=== PATIENT | male | born 1985 | race Caucasian/White ===

== ENCOUNTER 2020-06-27 12:30 | Emergency (ER) | payer MEDICAID ==
[~2020-06-27] VITALS: Ht 182.9 cm; Wt 83.8 kg
[2020-06-27 12:53] VITALS: BP 113/77
--- NOTE | 2020-06-27 15:32 | NUR ---
Patient/Caregiver given discharge instructions and they have confirmed that they understand the instructions. Patient ambulatory with steady gait.
== END 2020-06-27 15:26 ==
LOC: ED 15:25
DX: S63.522A Sprain of radiocarpal joint of left wrist, initial encounter (principal); X58.XXXA Exposure to other specified factors, initial encounter; Y93.89 Activity, other specified; Y92.89 Other specified places as the place of occurrence of the external cause; Y99.8 Other external cause status
CPT/HCPCS: 29125; 99283

== ENCOUNTER 2020-12-14 11:57 | Emergency (ER) | payer MEDICAID ==
[~2020-12-14] VITALS: Ht 182.9 cm; Wt 95.9 kg
[2020-12-14 12:02] VITALS: BP 132/62
== END 2020-12-14 12:52 | disposition home or self-care (01) ==
LOC: ED 12:45
DX: R04.0 Epistaxis (principal)
CPT/HCPCS: 99281

== ENCOUNTER 2021-02-27 20:46 | Emergency (ER) | payer MEDICAID ==
[~2021-02-27] VITALS: Ht 182.9 cm; Wt 97.3 kg
[2021-02-27 20:56] VITALS: BP 116/79
[2021-02-27] MEDS ORDERED: LIDOCAINE-MPF 1%, 5ML INFIL ONE (21:00)
[2021-02-27 23:31] LABS: BASOPHILS % (AUTO) 1 % (0-1); EOSINOPHILS % (AUTO) 2 % (1-7); LYMPHOCYTES % (AUTO) 36 % (22-44); MEAN CORPUSCULAR HEMOGLOBIN 28.2 pg (27.5-34.5); MEAN CORPUSCULAR HGB CONC 33.7 g/dL (33.2-36.2); MEAN PLATELET VOLUME 8.5 fL (7.4-10.4); MONOCYTES % (AUTO) 9 % (2-9); NEUTROPHILS % (AUTO) 53 % (42-75); PLATELET COUNT 193 x10^3/uL (130-400); RED BLOOD COUNT 5.04 x10^6/uL (4.38-5.82)
[2021-02-27 23:37] LABS: ALBUMIN 3.5 g/dL (3.4-5.0); ANION GAP 4 mmol/L (5-15); CALCIUM 9.2 mg/dL (8.5-10.1); CHLORIDE 106 mmol/L (98-107); CREATININE 1.23 mg/dL (0.7-1.3)
--- NOTE | 2021-02-28 00:39 | NUR ---
PT DECIDED TO LEAVE AMA. PT ADVISED TO SEE MD. PT REFUSED
== END 2021-02-28 00:43 | disposition left against medical advice (07) ==
LOC: ED 21:00
DX: L02.11 Cutaneous abscess of neck (principal)
CPT/HCPCS: 36415; 76536; 80048; 82040; 85025; 99284